=== PATIENT | female | born 1990 | race Caucasian/White ===

== ENCOUNTER 2020-01-06 07:56 | Emergency (ER) | payer MEDICAID ==
[~2020-01-06] VITALS: Ht 160 cm; Wt 65.9 kg
[2020-01-06 08:01] VITALS: BP 144/89
[2020-01-06] MEDS ORDERED: predniSONE 20 mg tablet PO ONE (08:15)
[2020-01-06] MEDS ORDERED: PRED20TA PO (08:16)
== END 2020-01-06 08:29 | disposition home or self-care (01) ==
LOC: ER 07:56
DX: L23.7 Allergic contact dermatitis due to plants, except food (principal); F32.9 Major depressive disorder, single episode, unspecified; Z72.89 Other problems related to lifestyle; Z79.899 Other long term (current) drug therapy; Z60.2 Problems related to living alone
CPT/HCPCS: 99283; J7512

== ENCOUNTER 2020-01-10 17:43 | Emergency (ER) | payer MEDICAID ==
[~2020-01-10] VITALS: Ht 160 cm; Wt 65.9 kg
[~2020-01-10 17:43] MED LIST: PRED20TA PO
[2020-01-10] MEDS ORDERED: FAMO10TA41 PO (19:21)
[2020-01-10] MEDS ORDERED: PRED10TA23 PO (19:21)
[2020-01-10] MEDS ORDERED: HYDR-3686 PO (19:21)
[2020-01-10 19:29] VITALS: BP 137/93
== END 2020-01-10 19:30 | disposition home or self-care (01) ==
LOC: ER 17:43
DX: L23.7 Allergic contact dermatitis due to plants, except food (principal); F32.9 Major depressive disorder, single episode, unspecified; Z72.89 Other problems related to lifestyle; Z60.2 Problems related to living alone; Z79.899 Other long term (current) drug therapy
CPT/HCPCS: 99283

== ENCOUNTER 2020-01-19 19:45 | Emergency (ER) | payer MEDICAID ==
[~2020-01-19] VITALS: Ht 160 cm; Wt 63.6 kg
[~2020-01-19 19:45] MED LIST changes: +FAMO10TA41 PO; +HYDR-3686 PO; +PRED10TA23 PO; -PRED20TA PO
[2020-01-19] MEDS ORDERED: LORazepam 2 mg/ml vial IV ONE ×2 (19:55→21:05)
[2020-01-19] MEDS ORDERED: morphine 10mg/ml inj. IV ONE ×2 (19:55→21:05)
[2020-01-19] MEDS ORDERED: iohexol 350MG/ML 100ml bottle IV ONE (20:04)
[2020-01-19] MEDS ORDERED: ondansetron/PF 4mg/2ml inj IV ONE (20:10)
--- NOTE | 2020-01-19 20:18 | NUR ---
PT TO CT, SHE IS FEELING RELIEF FROM MEDICATIONS.
--- NOTE | 2020-01-19 20:25 | NUR ---
INFORMED PA THAT PT TO CT/BLOOD NOT DRAWN/CANCELLED HCG.
[2020-01-19] MEDS ORDERED: SUMAtriptan succ. 6 MG/0.5ml vial SQ ONE (21:40)
--- NOTE | 2020-01-19 21:59 | NUR ---
PT VOMITED 100CC
[2020-01-19] MEDS ORDERED: ketorolac trometh. 30mg/ml inj. IV ONE (23:05)
[2020-01-19] MEDS ORDERED: diphenhydrAMINE 50 mg/ml inj IV ONE (23:05)
[2020-01-19] MEDS ORDERED: metoclopramide 5 mg/ml inj IV ONE (23:05)
[2020-01-20] MEDS ORDERED: haloperidol lactate 5mg/ml inj IM ONE (00:05)
[2020-01-20 00:27] VITALS: BP 141/78
[2020-01-21] MEDS ORDERED: SUMA50TA PO (01:30)
== END 2020-01-20 00:28 | disposition home or self-care (01) ==
LOC: ER 19:46
DX: G43.909 Migraine, unspecified, not intractable, without status migrainosus (principal); F32.9 Major depressive disorder, single episode, unspecified; F12.90 Cannabis use, unspecified, uncomplicated; Z60.2 Problems related to living alone; Z79.899 Other long term (current) drug therapy
CPT/HCPCS: 70496; 96372; 96374; 96375; 96376; 99285; J1200; J1885; J2060; J2270; J2405; J2765; Q9967; J3030

== ENCOUNTER 2020-01-20 23:11 | Emergency (ER) | payer MEDICAID ==
[~2020-01-20] VITALS: Ht 312.4 cm; Wt 63.6 kg
--- NOTE | 2020-01-20 23:43 | NUR ---
PT BOYFRIENJaison TREJO CAN BE REACHED AT [phone] . HE WAS NOTIFIED PER PT REQUEST THAT SHE WAS WAITING IN THE LOBBY WAITING FOR A ROOM .
[2020-01-20] MEDS ORDERED: normal saline 1000ML IV soln IVB ONE (23:50)
[2020-01-21] MEDS ORDERED: haloperidol lactate 5mg/ml inj IM ONE (00:15)
[2020-01-21] MEDS ORDERED: ketorolac trometh. 30mg/ml inj. IV ONE (00:15)
[2020-01-21] MEDS ORDERED: diphenhydrAMINE 50 mg/ml inj IV ONE (00:15)
[2020-01-21] MEDS ORDERED: SUMA50TA PO (01:30)
[2020-01-21 02:03] VITALS: BP 108/80
[2020-01-22] MEDS ORDERED: PROC-8 PO (01:41)
== END 2020-01-21 01:57 | disposition home or self-care (01) ==
LOC: ER 23:12
DX: G43.909 Migraine, unspecified, not intractable, without status migrainosus (principal); F32.9 Major depressive disorder, single episode, unspecified; F12.90 Cannabis use, unspecified, uncomplicated; Z72.89 Other problems related to lifestyle; Z60.2 Problems related to living alone; Z79.899 Other long term (current) drug therapy
CPT/HCPCS: 96372; 96374; 96375; 99284; J1200; J1630; J1885; J7030

== ENCOUNTER 2020-01-21 21:39 | Emergency (ER) | payer MEDICAID ==
[~2020-01-21] VITALS: Ht 160 cm; Wt 63.0 kg
[~2020-01-21 21:39] MED LIST changes: +SUMA50TA PO
[2020-01-21] MEDS ORDERED: diphenhydrAMINE 50 mg/ml inj IV ONE (23:50)
[2020-01-21] MEDS ORDERED: diazepam inj 5 MG/ML inj. IV ONE (23:50)
[2020-01-21] MEDS ORDERED: proCHLORperazine 10 MG/2 ml inj IV ONE (23:50)
[2020-01-22] MEDS ORDERED: diazepam inj 5 MG/ML inj. IV ONE (00:10)
--- NOTE | 2020-01-22 01:21 | NUR ---
Pt requesting to rest a little longer...TORO still 5-01/22
[2020-01-22] MEDS ORDERED: PROC-8 PO (01:41)
[2020-01-22] MEDS ORDERED: haloperidol lactate 5mg/ml inj IM ONE (01:50)
[2020-01-22 03:44] VITALS: BP 102/58
== END 2020-01-22 03:46 | disposition home or self-care (01) ==
LOC: ER 21:39
DX: G43.909 Migraine, unspecified, not intractable, without status migrainosus (principal); F32.9 Major depressive disorder, single episode, unspecified; F12.90 Cannabis use, unspecified, uncomplicated; Z72.89 Other problems related to lifestyle; Z60.2 Problems related to living alone; Z79.899 Other long term (current) drug therapy
CPT/HCPCS: 96372; 96374; 96375; 99284; J0780; J1200; J1630; J3360

== ENCOUNTER 2020-01-22 13:31 | Emergency (ER) | payer MEDICAID ==
[~2020-01-22] VITALS: Ht 167.6 cm; Wt 65.0 kg
[~2020-01-22 13:31] MED LIST changes: -HYDR-3686 PO; +PROC-8 PO
[2020-01-22 13:34] VITALS: BP 170/123
--- NOTE | 2020-01-22 15:42 | NUR ---
Attempted to call patient back to room from lobby, patient not in lobby. Called patients listed number. Patient stated that she needed immediate care so she went over to the urgent care. I notified patient that she is more than welcome to return to ED if she needs in the future.
== END 2020-01-22 15:45 | disposition left against medical advice (07) ==
LOC: ER 13:32
DX: R51 Headache (principal); Z53.21 Procedure and treatment not carried out due to patient leaving prior to being seen by health care provider